=== PATIENT | female | born 1950 | race Caucasian/White ===

== ENCOUNTER 2018-12-21 07:14 | Day surgery (SDC) ==
[2018-12-21] MEDS: TETRACAINE 0.5% UNIT-DOSE OP PRN ×2 (07:25→08:05)
[2018-12-21] MEDS: BETADINE OPTH PREP OP PRN ×2 (07:25→08:05)
[2018-12-21] MEDS: CYCLOGYL 2% OPTH OP PRN ×4 (07:26→07:41)
[2018-12-21] MEDS ORDERED: BSS WITH EPINEPHRINE OP ONE (07:42)
[2018-12-21] MEDS ORDERED: ZOFRAN 4 MG/2 ML IVP ONE (07:42)
[2018-12-21] MEDS ORDERED: DEX-MOXI-KETOR OPTH INJ 1/0.5/0.4 MG/ML IO ONE (07:42)
[2018-12-21] MEDS ORDERED: LIDOCAINE 1% 20 ML MDV ID STA (07:42)
[2018-12-21] MEDS ORDERED: LIDOCAINE 1%/PHENYLEPHRINE 1.5% BSS (SURGERY) INTRAOCULA ONE (07:42)
[2018-12-21] MEDS ORDERED: SUBLIMAZE ONE (07:58)
[2018-12-21] MEDS ORDERED: VERSED ONE (07:58)
[2018-12-21] MEDS ORDERED: ZOFRAN 4 MG/2 ML ONE (07:58)
[2018-12-21 14:28] VITALS: BP 124/60; TEMP 97.6
== END 2018-12-21 08:50 | disposition home or self-care (01) ==
LOC: SURG 07:14
PROVIDERS: ATTEND Ophthalmology
DX: H25.812 Combined forms of age-related cataract, left eye (principal)

== ENCOUNTER 2019-01-05 07:24 | Day surgery (SDC) ==
[2019-01-05] MEDS: TETRACAINE 0.5% UNIT-DOSE OP PRN ×3 (07:30→08:29)
[2019-01-05] MEDS: BETADINE OPTH PREP OP PRN ×2 (07:30→08:24)
[2019-01-05] MEDS: CYCLOGYL 2% OPTH OP PRN ×3 (07:31→07:41)
[2019-01-05] MEDS ORDERED: LIDOCAINE 1% 20 ML MDV ID STA (07:40)
[2019-01-05] MEDS ORDERED: LIDOCAINE 1%/PHENYLEPHRINE 1.5% BSS (SURGERY) INTRAOCULA ONE (07:40)
[2019-01-05] MEDS ORDERED: DEX-MOXI-KETOR OPTH INJ 1/0.5/0.4 MG/ML IO ONE (07:40)
[2019-01-05] MEDS ORDERED: ZOFRAN 4 MG/2 ML IVP ONE (07:40)
[2019-01-05] MEDS ORDERED: BSS WITH EPINEPHRINE OP ONE (07:40)
[2019-01-05 07:45] VITALS: TEMP 98.2
[2019-01-05] MEDS ORDERED: ZOFRAN 4 MG/2 ML ONE (08:22)
[2019-01-05] MEDS ORDERED: SUBLIMAZE ONE (08:22)
[2019-01-05] MEDS ORDERED: VERSED ONE (08:22)
[2019-01-05 14:21] VITALS: BP 124/55
== END 2019-01-05 09:20 | disposition home or self-care (01) ==
LOC: SURG 07:24
PROVIDERS: ATTEND Ophthalmology
DX: H25.811 Combined forms of age-related cataract, right eye (principal)